=== PATIENT | female | born 1990 | race African-American/Black ===

== ENCOUNTER 2017-10-26 19:37 | Inpatient (IN) | payer MEDICAID ==
[~2017-10-26] VITALS: Ht 165.1 cm; Wt 90.7 kg
[2017-10-26] MEDS: LACTATED RINGERS 1,000 ML IV SCH ×2 (20:15→21:15)
[2017-10-26] MEDS ORDERED: PNV1TABL76 MT (20:17)
[2017-10-26] MEDS ORDERED: DEXT 5%/LR + PITOCIN 20UNITS/L 1,000 ML IV SCH ×2 (20:18→23:50)
[2017-10-26] MEDS ORDERED: METHYLERGONOVINE MALEATE 0.2 MG/ML IM PRN (20:30)
[2017-10-26] MEDS ORDERED: CITRIC ACID/SODIUM CITRATE SOLN 30ML UDC PO ONE (20:30)
[2017-10-26] MEDS ORDERED: CARBOPROST TROMETHAMINE 250 MCG/ML AMPUL IM PRN (20:30)
[2017-10-26] MEDS ORDERED: CITRIC ACID/SODIUM CITRATE SOLN 30ML UDC PO NR (20:30)
[2017-10-26] MEDS ORDERED: NALOXONE HCL 0.4 MG/ML 1ML VIAL IM PRN (20:30)
[2017-10-26] MEDS ORDERED: MORPHINE SULFATE/PF 1MG/ML 10ML AMP ONE (20:34)
[2017-10-26] MEDS ORDERED: FENTANYL CITRATE/PF 50MCG/ML 2ML VIAL ONE (20:34)
[2017-10-26] MEDS ORDERED: ONDANSETRON HCL 4MG/2ML VIAL ONE (20:35)
[2017-10-26] MEDS ORDERED: GLYCOPYRROLATE 0.2 MG/ML 2ML VIAL ONE (20:35)
[2017-10-26] MEDS ORDERED: EPHEDRINE SULFATE 50MG/ML VIAL ONE (20:35)
[2017-10-26] MEDS ORDERED: PHENYLEPHRINE HCL 10 MG/ML 1ML (IV VIAL) IV ONE (20:35)
[2017-10-26] MEDS ORDERED: OXYTOCIN 10 UNITS/ML 1ML ONE (20:35)
[2017-10-26] MEDS ORDERED: SODIUM CHLORIDE 0.9% 10ML VIAL ONE (20:37)
[2017-10-26 20:42] LABS: BASOPHILS % 0.3 % (0.0-2.0); EOSINOPHILS % 0.3 % (0.0-5.0); HEMATOCRIT. 33.3 % (36.0-48.0); HEMOGLOBIN. 11.9 g/dL (12.0-16.0); LYMPHOCYTES % 18.1 % (20.0-50.0); MEAN CORPUSCULAR HEMOGLOBIN 33.9 pg (28.0-32.0); MEAN PLATELET VOLUME 9.2 fl (7.4-10.4); MONOCYTES % 6.2 % (2.0-8.0); NEUTROPHILS % 75.1 % (40.0-76.0); PLATELET 177 x1000/uL (130-400); RED BLOOD CELL COUNT 3.51 mill/uL (4.2-5.4); RED CELL DISTRIBUTION WIDTH 14.4 % (11.6-14.6)
[2017-10-26 20:55] LABS: CLARITY URINE CLOUDY (CLEAR); COLOR URINE YELLOW (YELLOW); KETONES URINE TRACE (NEGATIVE); LEUKOCYTE ESTERASE URINE 2+ (NEGATIVE); NITRITE URINE NEGATIVE (NEGATIVE); OCCULT BLOOD URINE 3+ (NEGATIVE); PROTEIN URINE NEGATIVE (NEGATIVE); SPECIFIC GRAVITY URINE 1.028 (1.005-1.030)
[2017-10-26 20:56] LABS: PARTIAL THROMBOPLASTIN TIME 29.5 sec (23.4-31.0); PROTHROMBIN TIME 10.2 sec (9.4-11.6)
[2017-10-26 21:14] LABS: *AMPHETAMINES SCREEN URINE NEGATIVE (NEGATIVE); *BARBITURATES SCREEN URINE NEGATIVE (NEGATIVE); *BENZODIAZEPINES SCREEN URINE NEGATIVE (NEGATIVE); *COCAINE SCREEN URINE NEGATIVE (NEGATIVE)
[2017-10-26 21:15] LABS: METHADONE URINE SCREEN NEGATIVE (NEGATIVE); OPIATES URINE SCREEN NEGATIVE (NEGATIVE); PHENCYCLIDINE URINE SCREEN NEGATIVE (NEGATIVE)
[2017-10-26 21:25] LABS: HEPATITIS B SURFACE ANTIGEN NEGATIVE
[2017-10-26 21:50] LABS: CANNABINOID URINE SCREEN PRESUMTIVE POSITIVE (NEGATIVE)
[2017-10-26] MEDS ORDERED: CEFAZOLIN 2000MG PREMIX 50 ML IV ONE (22:45)
[2017-10-26] MEDS ORDERED: DIPHENHYDRAMINE 50MG/ML VIAL ONE (23:27)
[2017-10-26] MEDS ORDERED: METOCLOPRAMIDE HCL 10MG/2ML VIAL ONE (23:30)
[2017-10-27] MEDS ORDERED: HEMORRHOIDAL SUPP PR PRN
[2017-10-27] MEDS ORDERED: HYDROMORPHONE HCL/PF 2MG/ML CPJ IM PRN
[2017-10-27] MEDS ORDERED: DIPHENHYDRAMINE 50MG/ML VIAL IV PRN
[2017-10-27] MEDS ORDERED: NALOXONE HCL 0.4 MG/ML 1ML VIAL IV PRN
[2017-10-27] MEDS ORDERED: ONDANSETRON HCL 4MG/2ML VIAL IV PRN
[2017-10-27] MEDS ORDERED: IBUPROFEN 400MG TABLET PO PRN
[2017-10-27] MEDS ORDERED: LANOLIN OINT 0.25 GM TUBE TOP PRN
[2017-10-27] MEDS ORDERED: DIPHENHYDRAMINE 25MG CAPSULE PO PRN
[2017-10-27] MEDS ORDERED: HYDROCODONE/ACETAMINOPHEN 5/325MG TABLET PO PRN
[2017-10-27] MEDS ORDERED: BUTORPHANOL TARTRATE 2 MG/ML VIAL IV PRN
[2017-10-27] MEDS ORDERED: BISACODYL 10MG SUPP PR PRN
[2017-10-27] MEDS ORDERED: ONDANSETRON 4MG ODT PO PRN (00:30)
[2017-10-27 02:30] VITALS: BP 99/53
[2017-10-27] MEDS: KETOROLAC 30MG/ML VIAL IV PRN ×3 (02:39→14:48)
[2017-10-27 03:30] VITALS: BP 99/55
[2017-10-27 06:00] VITALS: BP 101/57
[2017-10-27 07:32] VITALS: BP 129/70
[2017-10-27 08:18] LABS: BASOPHILS % 0.3 % (0.0-2.0); EOSINOPHILS % 0.3 % (0.0-5.0); HEMATOCRIT. 26.5 % (36.0-48.0); HEMOGLOBIN. 9.6 g/dL (12.0-16.0); LYMPHOCYTES % 22.5 % (20.0-50.0); MEAN CORPUSCULAR HEMOGLOBIN 34.3 pg (28.0-32.0); MEAN CORPUSCULAR VOLUME 94.9 fL (81.0-99.0); MEAN PLATELET VOLUME 9.1 fl (7.4-10.4); NEUTROPHILS % 69.9 % (40.0-76.0); PLATELET 136 x1000/uL (130-400); RED BLOOD CELL COUNT 2.79 mill/uL (4.2-5.4); RED CELL DISTRIBUTION WIDTH 14.2 % (11.6-14.6)
[2017-10-27] MEDS: SIMETHICONE 80MG TABLET CHEW PO SCH ×3 (08:38→17:51)
[2017-10-27] MEDS: PRENATAL VIT/FE FUMARATE/FA TABLET PO SCH (08:38)
[2017-10-27] MEDS: FERROUS SULFATE 325MG TABLET PO SCH ×2 (13:03→17:51)
[2017-10-27 15:20] VITALS: BP 126/69
[2017-10-27] MEDS: HYDROCODONE/ACETAMINOPHEN 5/325MG TABLET PO PRN (20:40)
[2017-10-27 21:00] VITALS: BP 137/60
[2017-10-27] MEDS ORDERED: DOCUSATE SODIUM 100MG CAPSULE PO SCH (21:00)
[2017-10-28] MEDS: HYDROCODONE/ACETAMINOPHEN 5/325MG TABLET PO PRN ×4 (03:00→18:58)
[2017-10-28 04:10] VITALS: BP 125/63
[2017-10-28 08:00] VITALS: BP 126/63
[2017-10-28] MEDS: FERROUS SULFATE 325MG TABLET PO SCH ×2 (09:01→12:45)
[2017-10-28] MEDS: SIMETHICONE 80MG TABLET CHEW PO SCH ×3 (09:01→21:16)
[2017-10-28] MEDS: PRENATAL VIT/FE FUMARATE/FA TABLET PO SCH (09:01)
[2017-10-28 15:35] VITALS: BP 153/69
[2017-10-28 19:55] VITALS: BP 129/67
[2017-10-28 23:50] VITALS: BP 151/81
[2017-10-29] MEDS: HYDROCODONE/ACETAMINOPHEN 5/325MG TABLET PO PRN ×2 (01:43→07:17)
[2017-10-29 05:30] VITALS: BP 126/82
[2017-10-29 08:46] VITALS: BP 141/60
[2017-10-29] MEDS: PRENATAL VIT/FE FUMARATE/FA TABLET PO SCH (09:06)
[2017-10-29] MEDS: FERROUS SULFATE 325MG TABLET PO SCH (09:06)
[2017-10-29] MEDS: SIMETHICONE 80MG TABLET CHEW PO SCH (09:06)
== END 2017-10-29 11:20 | disposition home or self-care (01) | DRG 540 ==
LOC: L&D 19:37 → OBSVTOIN 19:37 → 7EST PP/OB 10-27 01:42
PROVIDERS: ADMIT Specialist; ATTEND Specialist
PROC: 10D00Z1 Extraction of Products of Conception, Low, Open Approach (ICD-10-PCS; principal; 2017-10-26 23:08)
DX: O34.211 Maternal care for low transverse scar from previous cesarean delivery (principal); O99.324 Drug use complicating childbirth; F12.10 Cannabis abuse, uncomplicated; R87.623 High grade squamous intraepithelial lesion on cytologic smear of vagina (HGSIL); O75.89 Other specified complications of labor and delivery; Z3A.40 40 weeks gestation of pregnancy; Z37.0 Single live birth
CPT/HCPCS: 36415; 80305; 80349; 81003; 85025; 85610; 85730; 86592; 86703; 86762; 86850; 86900; 87340; 88307; A4216; J0690; J1200; J1885; J2274; J2370; J2405; J2590; J2765; J3010; J3490; J7120; A4315